=== PATIENT | female | born 1960 | race African-American/Black ===

== ENCOUNTER 2017-04-15 09:47 | Emergency (ER) | payer OTHER ==
[~2017-04-15] VITALS: Ht 165.1 cm; Wt 94.3 kg
[~2017-04-15 09:47] MED LIST: ALBU18HF PO; AZIT500T77 PO; BUDE10.22 INH; FURO-92 PO; LISI-167 PO; METO25TA91 PO; POTA20TA14 PO; PRED10TA PO; TIOT18CA INH
[2017-04-15] MEDS ORDERED: FURO40TA6 PO (10:51)
[2017-04-15] MEDS ORDERED: CARV12.543 PO (10:51)
[2017-04-15 11:10] VITALS: BP 147/85
[2017-04-15 11:26] LABS: BLOOD UREA NITROGEN 25 mg/dL (7-18)
[2017-04-15] MEDS ORDERED: FUROSEMIDE 40 MG TABLET PO SCH (12:00)
== END 2017-04-15 12:15 | disposition home or self-care (01) ==
LOC: ED 10:34
DX: I50.20 Unspecified systolic (congestive) heart failure (principal); I50.1 Left ventricular failure, unspecified; I11.9 Hypertensive heart disease without heart failure; J44.9 Chronic obstructive pulmonary disease, unspecified
CPT/HCPCS: 36415; 71010; 80048; 82040; 83880; 85025; 93005; 99285

== ENCOUNTER → 2017-04-23 | Outpatient (CLI) | payer OTHER ==
[~2017-04-23] MED LIST changes: +CARV12.543 PO; +FURO40TA6 PO; +REGADENOSON 0.4 MG/5 ML SYRINGE ONE
== END | disposition home or self-care (01) ==
LOC: CFH 12:28
PROVIDERS: ATTEND Physician Assistant Medical
DX: I42.9 Cardiomyopathy, unspecified (principal); I10 Essential (primary) hypertension
CPT/HCPCS: 78452; 93017; A9502; J2785

== ENCOUNTER 2018-12-16 10:02 | Observation (INO) | payer OTHER ==
[2018-12-13 08:11] VITALS: BP 128/77
[2018-12-13 08:40] LABS: BASOPHILS # (AUTO) 0.03 x10^3/uL (0-0.1); BASOPHILS % (AUTO) 0 % (0-1); EOSINOPHILS # (AUTO) 0.17 x10^3/uL (0-0.4); EOSINOPHILS % (AUTO) 2 % (1-7); LYMPHOCYTES # (AUTO) 3.52 x10^3/uL (1-3.4); LYMPHOCYTES % (AUTO) 37 % (22-44); MD NO; MEAN CORPUSCULAR HGB CONC 32.8 g/dL (32.4-35.8); MEAN CORPUSCULAR VOLUME 91.6 fL (80-100); MEAN PLATELET VOLUME 7.1 fL (7.4-10.4); MONOCYTES # (AUTO) 0.59 x10^3/uL (0.2-0.8); MONOCYTES % (AUTO) 6 % (2-9); NEUTROPHILS # (AUTO) 5.21 x10^3/uL (1.8-6.8); NEUTROPHILS % (AUTO) 55 % (42-75); PLATELET COUNT 312 x10^3/uL (130-400); RED BLOOD COUNT 4.41 x10^6/uL (3.82-5.3)
[2018-12-13 08:50] LABS: ALANINE AMINOTRANSFERASE 25 U/L (12-78); ALBUMIN 3.4 g/dL (3.4-5.0); ANION GAP 7 mmol/L (5-15); CALCIUM 8.9 mg/dL (8.5-10.1); CHLORIDE 106 mmol/L (98-107); CREATININE 1.58 mg/dL (0.55-1.02)
[2018-12-13 08:52] LABS: ALKALINE PHOSPHATASE 84 U/L (45-117); BILIRUBIN,TOTAL 0.3 mg/dL (0.2-1.0); TOTAL PROTEIN 7.8 g/dL (6.4-8.2)
[~2018-12-16] VITALS: Ht 165.1 cm; Wt 98.7 kg
[~2018-12-16 10:02] MED LIST changes: +AZIT500T5 PO; -AZIT500T77 PO; +METF500T17 PO; +POTA20TA6 PO; -REGADENOSON 0.4 MG/5 ML SYRINGE ONE
[2018-12-16] MEDS ORDERED: SODIUM CHLORIDE 0.9% 1,000 ML IV SCH (10:28)
[2018-12-16] MEDS ORDERED: CEFAZOLIN PMX 1GM/50ML 50 ML IVPB ONE (10:30)
[2018-12-16] MEDS ORDERED: DOXE3TAB3 PO (10:44)
[2018-12-16] MEDS ORDERED: MULT-316 PO (10:47)
[2018-12-16] MEDS ORDERED: CEFAZOLIN 1,000 MG ONE (11:27)
[2018-12-16] MEDS ORDERED: FENTANYL PF 250 MCG/5ML ONE (11:27)
[2018-12-16] MEDS ORDERED: MIDAZOLAM 1 MG/ML, 5ML ONE (11:27)
[2018-12-16] MEDS ORDERED: LIDOCAINE 1%, 20ML ONE (11:27)
[2018-12-16] MEDS ORDERED: CEFAZOLIN PMX 1GM/50ML 50 ML ONE (11:27)
[2018-12-16] MEDS ORDERED: HOLD MEDICATION MC PRN (13:30)
[2018-12-16] MEDS ORDERED: ONDANSETRON 2MG/ML, 2ML IV PRN (13:30)
[2018-12-16] MEDS ORDERED: DOXEPIN HCL PO PRN (13:30)
[2018-12-16] MEDS ORDERED: ZOLPIDEM 5MG TABLET PO PRN (13:30)
[2018-12-16] MEDS ORDERED: ALBUTEROL SULFATE 2.5 MG/3 ML HHN PRN (15:30)
[2018-12-16] MEDS ORDERED: DOXEPIN MC SCH (15:30)
[2018-12-16] MEDS: HYDROcodone/APAP 5/325 TABLET PO PRN (15:36)
[2018-12-16] MEDS: metFORMIN 500 MG TABLET PO SCH (20:03)
[2018-12-16] MEDS: POTASSIUM CHLORIDE 20 MEQ TAB.ER.PRT PO SCH (20:03)
[2018-12-16] MEDS: CEFAZOLIN PMX 1GM/50ML 50 ML IVPB SCH (20:03)
[2018-12-16 20:05] VITALS: BP 126/76
[2018-12-16] MEDS: CARVEDILOL 12.5 MG TABLET PO SCH (20:06)
[2018-12-16] MEDS: SODIUM CHLORIDE FLUSH 10ML SYR IVF SCH (20:07)
[2018-12-16] MEDS: FUROSEMIDE 40 MG TABLET PO SCH (20:07)
[2018-12-17 00:56] VITALS: BP 130/77
[2018-12-17] MEDS: HYDROcodone/APAP 5/325 TABLET PO PRN (01:00)
[2018-12-17] MEDS: CEFAZOLIN PMX 1GM/50ML 50 ML IVPB SCH (04:08)
[2018-12-17 07:17] VITALS: BP 120/80
[2018-12-17] MEDS: CARVEDILOL 12.5 MG TABLET PO SCH (08:40)
[2018-12-17] MEDS: metFORMIN 500 MG TABLET PO SCH (08:40)
[2018-12-17] MEDS: POTASSIUM CHLORIDE 20 MEQ TAB.ER.PRT PO SCH (08:40)
[2018-12-17] MEDS: FUROSEMIDE 40 MG TABLET PO SCH (08:41)
[2018-12-17] MEDS: SODIUM CHLORIDE FLUSH 10ML SYR IVF SCH (08:41)
[2018-12-17] MEDS ORDERED: LISINOPRIL 10 MG TABLET PO SCH (09:00)
[2018-12-17] MEDS ORDERED: MULTIVITAMIN 1 TABLET PO SCH (09:00)
== END 2018-12-17 10:18 | disposition home or self-care (01) ==
LOC: CACL 10:02 → ORIP 13:14 → 5SO 15:18 → DCLOUNGE 12-17 10:03
PROVIDERS: ADMIT Internal Medicine Cardiovascular Disease; ATTEND Internal Medicine Cardiovascular Disease
DX: I42.9 Cardiomyopathy, unspecified (principal); N18.3 Chronic kidney disease, stage 3 (moderate); I12.9 Hypertensive chronic kidney disease with stage 1 through stage 4 chronic kidney disease, or unspecified chronic kidney disease; E11.22 Type 2 diabetes mellitus with diabetic chronic kidney disease; I50.22 Chronic systolic (congestive) heart failure; E78.2 Mixed hyperlipidemia; I34.0 Nonrheumatic mitral (valve) insufficiency; G47.30 Sleep apnea, unspecified
CPT/HCPCS: 33249; 36415; 71045; 71046; 80053; 85025; 93005; 96365; 96366; 99156; 99157; C1721; C1779; C1892; C1895; G0378; J0690; J2250; J3010; J3490